=== PATIENT | female | born 1975 | race Caucasian/White ===

== ENCOUNTER 2023-01-01 15:01 | Emergency (ER) | payer BC ==
[~2023-01-01] VITALS: Ht 165.1 cm; Wt 77.1 kg
[2023-01-01 15:10] VITALS: O2SAT 97
== END 2023-01-01 15:24 | disposition left against medical advice (07) ==
LOC: ER 15:01
DX: M79.671 Pain in right foot (principal)
CPT/HCPCS: A4606; A4663